=== PATIENT | female | born 1955 | race Hispanic/Latino ===

== ENCOUNTER 2016-09-09 10:17 | Observation (INO) | payer SELFPAY ==
[2016-09-09] VITALS (11 sets, daily range): BP systolic 90–126; BP diastolic 39–71; PULSE 70–119; RESP 13–22; O2SAT 91–96
[~2016-09-09 10:17] MED LIST: CLOT30SO TOPICAL; CRES20T PO; DIGO125T73 PO; DIGO250T72 PO; DILT240C85 PO; DILT60TA PO; DOCU240C41 PO; FURO40TA4 PO; GLIP5TAB21 PO; LISI2.5T PO; LISI40TA PO; LORA10CA PO; METF1000 PO; METO25TA6 PO; OMEP20CA11 PO; OMEP20TA86 PO; POTA10TA19 PO; WARF2.5T82 PO; WARF5TAB7 PO
--- NOTE | 2016-09-09 10:52 | ED.REPORT ---
HPI-Chest Pain 40 and Over Date of Service Sep 09, 2016 ED Provider: Mir Valdovinos MD Pt is a Greenlandic speaking 61 y/o female anticoagulated on Warfarin w/ a hx of CAD , DM, HTN, hyperlipidemia, paroxysmal a-fib, presenting to the ED c/o substernal intermittent pleuritic CP onset this morning. Her pain occurs mostly , almost only while/after coughing. She c/o associated palpitations, cough, nausea, headache, intermittent diarrhea, chills at night. Similar symptoms have occurred previously only when she has a cold. Her CP lasts approximately 3 minutes and returns about every 10 minutes. She denies fever, increased edema. Seasonal Influenza vaccination is up to date. There have been no recent antibiotics or changes in her medications. She used her inhaler this morning because the cough would not go away. The granddaughter reports that she has been having intermittent CP which quickly resolves spontaneously for months. Nursing Notes Stated Complaint: SOB/COUGHING/WEAK Chief Complaint: Respiratory Distress Nursing Notes Reviewed: Yes (Visibiz, Invisible not reconciled) Allergies: Coded Allergies: No Known Allergies (Verified , 04/18/16) Scheduled Acarbose (Acarbose) 100 Mg Tablet 50 MG PO TIDWM Amitriptyline (Amitriptyline) 10 Mg Tablet 10 MG PO HS Aspirin (Aspirin) 81 Mg Tablet 81 MG PO DAILY Cholecalciferol (Vitamin D3) (Vitamin D) 1,000 Unit Capsule 1,000 UNIT PO DAILY Digoxin (Digoxin) 250 Mcg Tablet 125 MCG PO DAILY Diltiazem (Diltiazem) 60 Mg Tablet 60 MG PO BID Diltiazem ER (Cardizem CD) 240 Mg Cap.er.24h 240 MG PO DAILY Furosemide (Furosemide) 40 Mg Tablet 40 MG PO DAILY Glipizide ER (Glipizide ER) 10 Mg Tab.er.24 10 MG PO DAILY Lisinopril (Lisinopril) 40 Mg Tablet 40 MG PO BID Metformin (Glucophage) 1,000 Mg Tablet 1,000 MG PO BID Omeprazole (Omeprazole) 20 Mg Tablet.dr 20 MG PO DAILY Potassium Citrate ER (Potassium Citrate ER) 10 Meq Tablet 10 MEQ PO DAILY TAKE WITH FOOD Rosuvastatin Calcium (Crestor) 20 Mg Tablet 10 MG PO DAILY Warfarin Sodium (Warfarin Sodium) 2.5 Mg Tablet 2.5 MG PO SuTuThSa Warfarin Sodium (Warfarin Sodium) 5 Mg Tablet 5 MG PO MWF Scheduled PRN Albuterol HFA (Proair HFA) 8.5 Gm Hfa.aer.ad 2 PUFFS INHALATION Q4H PRN PRN For Shortness of Breath Cyclobenzaprine (Cyclobenzaprine) 5 Mg Tablet 5-10 MG PO TID PRN PRN Spasm Docusate Sodium (Docusate Sodium) 250 Mg Capsule 250 MG PO BID PRN PRN For Constipation Loratadine (Claritin) 10 Mg Capsule 10 MG PO DAILY PRN PRN allergies Polyethylene Glycol 3350 (Polyethylene Glycol 3350) 17 Gm Powd.pack 17 GM PO DAILY PRN PRN For Constipation General Time Seen by MD: 10:33 Chief Complaint Chest pain (pleuritic) Hx Obtained From: Patient, Desktop Support Consultant (Greenlandic speaking RN used, official labor standards director not available at necessary time) Arrived By: Walk-in Sudden in Onset?: No Onset Occurred: 1 day ago Symptom Duration: Intermittent Location: : Substernal Quality: Pleuritic Radiation: : Does not radiate Migration/Movement: Reports: None Severity: Current: Mild Severity: Maximum: Moderate Similar Sx Previous: Yes Past Medical History Past Medical History Notes: June 2006 showed high right pulmonary pressures Past Medical History O2 requiring central hypoventilation syndrome with subsequent cor pulmonale and episodic paroxysmal atrial fibrillation (warfarin use indicated in EMR 2006, current medications not reconciled) Diabetes Hyperlipidemia Hypertension GERD Depression History of nephrotic syndrome History of PPD positive in 1993 Reports: Coronary artery disease Past Surgical History Cholecystectomy Family History Noncontributory Smoking History Former Smoker Social History Other Social History: Good social support, , Local resident Ambulatory Status Independent Review of Systems Constitutional: Reports: Chills, Denies: Fever Respiratory: Reports: Non-productive cough, Pleuritic pain, Denies: Shortness of breath Cardiovascular: Reports: Chest pain, Palpitations GI: Reports: Diarrhea, Nausea, Denies: Abdominal pain Neurologic: Reports: Headache Complete sys rev & neg: except as marked. Physical Exam Initial Vital Signs Vital Signs (First) Date Time Temp Pulse Resp B/P Pulse Ox O2 Delivery O2 Flow Rate FiO2 09/09/16 10:21 36.9 117/71 09/09/16 11:14 110 22 94 Room Air 09/09/16 14:36 2 Initial VS: Reviewed, Vital signs normal, Vital signs abnormal (she vitals listed in Visibiz are normal, the patient had periods of sat around 9091%, had periods of hypotension with a lowest blood pressure of 86 systolic while in the department, and tachycardic with A. fib up to 1:30, but mostly adequately rate controlled) Head / Eyes: Atraumatic, Normocephalic, PERRL ENT: Mucous membranes moist, Conjunctiva normal, No scleral icterus Neck: Supple, Full range of motion Extremities: Vascular intact, Neuro intact, No swelling, No tenderness Skin: Warm, Dry, No cyanosis Neurologic: Alert, Oriented, Nonfocal Psychiatric: Mood/affect normal, Behavior normal, Normal thought content General/Constitutional: Awake, Alert, No acute distress, Cooperative, Not toxic appearing Appearance / Presentation: Positive: Uncomfortable Respiratory / Chest: Atraumatic, Breath sounds NL, Breath sounds = bilat, No respiratory distress, No rales, No rhonchi, No wheezing, No retractions, No stridor, No chest tenderness, No chest wall deformity, No crepitus She has an uncomfortable appearing persistent cough RN states that there is wheezing and rhonchi on the left side but I do not appreciate this O2 saturation 91% Not dyspneic Cardiovascular: Heart sounds NL, No gallop, No murmurs, No rubs, Cap refill not delayed, Peripheral circulation NL Heart Rate / Rhythm: Positive: Irreg irregular rhythm, Tachycardia Abdomen: Atraumatic, Soft, Non-tender, No guarding, No rebound Interpretation & Diagnostics Lab Results Interpretation Result Diagram: 09/09/16 1100 09/09/16 1100 Test 09/09/16 11:00 09/09/16 13:57 White Blood Count 9.9th/mm3 (3.8-10.1) Red Blood Count 3.67mil/mm3 (3.90-5.20) Hemoglobin 10.2g/dL (12.0-15.6) Hematocrit 33.3% (35.0-46.0) Mean Corpuscular Volume 90.7fL (81-100) Mean Corpuscular Hemoglobin 27.8pg (27.0-35.0) Mean Corpuscular Hemoglobin Concent 30.6% (32.0-37.0) Red Cell Distribution Width 14.2% (12.3-15.4) Platelet Count 266bil/L (150-400) Neutrophils (%) (Auto) 77.1% (40-74) Lymphocytes (%) (Auto) 14.2% (14-46) Monocytes (%) (Auto) 7.9% (4-12) Eosinophils (%) (Auto) 0.4% (0-5) Basophils (%) (Auto) 0.1% (0-3) Prothrombin Time 29.5sec (8.1-12.5) Prothromb Time International Ratio 2.70ratio Sodium Level 140mEq/L (134-144) Potassium Level 3.6mEq/L (3.5-5.2) Chloride Level 100mEq/L (97-108) Carbon Dioxide Level 21mmol/L (18-29) Blood Urea Nitrogen 22mg/dL (8-27) Creatinine 0.91mg/dL (0.57-1.00) Estimat Glomerular Filtration Rate 90mL/min (>59) Glucose Level 220mg/dL (60-99) Calcium Level 9.2mg/dL (8.5-10.1) Magnesium Level 1.6mg/dL (1.6-2.6) Total Bilirubin 0.4mg/dL (0.0-1.2) Aspartate Amino Transf (AST/SGOT) 20U/L (0-50) Alanine Aminotransferase (ALT/SGPT) 10U/L (0-32) Alkaline Phosphatase 86U/L (25-165) Troponin T < 0.010ug/L (0.0-0.011) Total Protein 7.3g/dL (6.4-8.4) Albumin 3.6g/dL (3.4-5.0) Digoxin Level 0.8nG/mL (0.9-2.0) Lactic Acid Level 2.1mmol/L (0.4-2.0) Lab Results Interpretation: CBC normal CMP mild hyperglycemia Influenza negative INR therapeutic Blood Cultures 2 pending Lactic acid marginally elevated Hospitalist has requested sputum culture, and respiratory viral panel, these have been ordered ECG Interpretation ECG Interpretation: A-fib with RvR DIffuse ST segment depression 1-2 mm possibly related to Digoxin Borderline RBBB Time: 10:57 Interpreted by: ED physician Normal ECG Interpretation: No acute ischemic changes, No change from prior ECGs (Mar 2016) X-Ray Chest Interpretation Chest Xray Interpretation: IMPRESSION: No acute pulmonary process. Dictated by: Macy Mireles M.D. on 09/09/2016 at 11:22 Approved by: Macy Mireles M.D. on 09/09/2016 at 11:22 View: Portable, 1 view Interpretation / Wet Read by: Interpret - Radiologist Re-Eval/Medical Decision Med Decision/Clinical Course This is a 61-year-old Green[place]ic-speaking female presents with a chief complaint of a terrible cough. She reports pain with the cough, reports the cough is persistent, and just feels lousy. She denies jason fever, denies essentially shortness breath, she does have some intermittent palpitations. She is on warfarin due to history of atrial fibrillation paroxysmal. Denies smoking history. On exam she does have an uncomfortable appearing cough, but does not appear toxic. However at intervals the patient would have relative hypotension with the blood pressure had dropped as low as 86 at one point, and she was persistently low grade A. fib tachycardia, nonsustained requiring rate control, but generally hanging out around 110. Occasionally her O2 sats would drop down to 90. Workup was pursued, influenza swab was negative. Chest x-ray was negative. Blood work revealed no leukocytosis, and was generally normal. However each time I checked the patient, she was having moderately low blood pressures in the mid 90s, and received several small fluid boluses. On another recheck her systolic blood pressures as low as 86, after 4 x 500 mL boluses. The patient had chronic atrial fibrillation, and had rates generally in the low 100s, she did not have sustained rates above 120 to require rate control. Overall, the patient's chest x-ray and blood work and flu swab are reassuring, however with the patient having recurrent episodes of mild hypotension, a marginally elevated lactic acid, persistent nonspecific tachycardia, and borderline hypoxia sats right on the edge of 90- 91%, the patient is appropriate for admission. Despite the negative chest x-ray, the clinical presentation remains concerning for the possibility of occult pneumonia and sepsis, the patient is being started on ceftriaxone and Zithromax. The patient is improved and is now normotensive at time of admission. The case is discussed with the hospitalist's requested a sputum culture and respiratory virus PCR panel, which are being added. Source of Hx: Old records Time of Eval: 13:38 Patient Status: Condition unchanged Re-Evaluation/Progress Note: Pt rechecked. Informed pt of need for admission due to unstable and worsening vital signs and unclear cause of current illness. Pt understands and agrees with plan for admission. All questions addressed. Consultation : Referral / Consult Name: Katie Alicea MD Consulted With: Hospitalist Call Returned at: 15:06 Director Of Labor And Delivery: Will see patient, Agrees with eval, Agrees with plan, Accepts admit Note: Requested respiratory viral panel and a sputum culture Differential Diagnosis: Positive: Dysrhythmia (chronic atrial fibrillation), Pneumonia, Negative: Acute coronary syndrome, Acute myocardial infarct, Chest pain, acute, Congestive heart failure, Esophageal rupture, Myocarditis, Pericarditis, Pleurisy, Pneumothorax, Pulmonary edema, Pulmonary embolism (I do not appreciate any signs of PE, patient's therapeutic on INR) Counseled Regarding: Diagnosis, Lab results, Need for admission Discharge & Departure Primary Impression: Pneumonia Pneumonia type: due to unspecified organism Laterality: unspecified laterality Lung location: unspecified part of lung Qualified Code: B99.9 - Unspecified infectious disease Additional Impressions: Cough Chronic atrial fibrillation Anticoagulated on Coumadin Hypotension Hypotension type: unspecified hypotension type Qualified Code: I95.9 - Hypotension, unspecified Hypoxia Disposition: ADMITTED TO HOSPITAL Discharge Condition All VS Reviewed: Yes Condition: Stable Referrals: Ha Fisher MD (PCP) Joel Attestation Portions of this note were transcribed by Ubaldo Vega. I, Dr. Valdovinos personally performed the history, physical exam and medical decision-making; I reviewed and confirmed the accuracy of the information in the transcribed note. Signed by Joel Lord, 09/09/16 - 1200 copies to: Ha Fisher MD, Matthew F MD Sep 09, 2016 10:52 UBALDO VEGA Sep 09, 2016 11:00
[2016-09-09] MEDS ORDERED: Albuterol-Ipratropium 3 mL Inhalation Solution NEB ONE (10:55)
[2016-09-09] MEDS ORDERED: HYDROcodone-APAP 5-325 mg Tablet PO ONE (10:55)
[2016-09-09 11:11] LABS: BASOPHILS % (AUTO) 0.1 % (0-3); EOSINOPHILS % (AUTO) 0.4 % (0-5); MONOCYTES % (AUTO) 7.9 % (4-12); Mean Corpuscular Hemoglobin 27.8 pg (27.0-35.0); Mean Corpuscular Volume 90.7 fL (81-100); NEUTROPHILS % (AUTO) 77.1 % (40-74); Platelet Count 266 bil/L (150-400)
--- NOTE | 2016-09-09 11:24 | DRSVH ---
PROCEDURE: X-RAY CHEST ONE VIEW, PORTABLE ([id number]) INDICATIONS: CHEST PAIN TECHNIQUE: One view of the chest was acquired. COMPARISON: [facility], CR, XR CHEST 1VW (PORTABLE), 04/18/2016, 12:27. FINDINGS: Surgical changes and devices: None. Lungs and pleura: No pleural effusions or pneumothorax. Lungs are clear. Mediastinum: Mediastinal contours appear normal. Heart size is normal. Bones and chest wall: No suspicious bony lesions. Overlying soft tissues appear unremarkable. IMPRESSION: No acute pulmonary process. Dictated by: Macy Mireles M.D. on 09/09/2016 at 11:22 Approved by: Macy Mireles M.D. on 09/09/2016 at 11:22
[2016-09-09 11:34] LABS: INR 2.7 ratio
[2016-09-09] MEDS ORDERED: 0.9% Sodium Chloride 500 ML IV ONE ×4 (11:55→13:50)
[2016-09-09 12:13] LABS: Magnesium 1.6 mg/dL (1.6-2.6)
[2016-09-09 12:14] LABS: TROPONIN T < 0.010 ug/L (0.0-0.011)
[2016-09-09] MEDS ORDERED: Azithromycin Inj 500 MG in Dextrose 5% w/Vial Mate 250 ML IV ONE (13:25)
[2016-09-09] MEDS ORDERED: cefTRIAXone Inj 2,000 MG in IV Premix 1 EACH IV ONE (13:25)
[2016-09-09] MEDS ORDERED: ASPI-973 PO (14:49)
[2016-09-09] MEDS ORDERED: ACAR100T2 PO (14:53)
[2016-09-09] MEDS ORDERED: AMIT10TA6 PO (14:53)
[2016-09-09] MEDS ORDERED: CHOL100045 PO (14:53)
[2016-09-09] MEDS ORDERED: DOCU250C2 PO (14:56)
[2016-09-09] MEDS ORDERED: ALBU8.5H2 INHALATION (14:56)
[2016-09-09] MEDS ORDERED: CYCL5TAB PO (14:56)
[2016-09-09] MEDS ORDERED: POLY17PO2 PO (14:56)
[2016-09-09] MEDS ORDERED: Alum-Mag Hydrox-Simeth 30 mL Suspension PO PRN (15:25)
[2016-09-09] MEDS ORDERED: Ondansetron 2 mg/mL 2 mL Inj IVPUSH PRN (15:25)
[2016-09-09] MEDS ORDERED: cefTRIAXone Inj 2,000 MG in Dextrose 5% Minibag Plus 50 ML IV SCH (15:35)
[2016-09-09 16:03] LABS: APPEARANCE,URINE CLEAR (CLEAR,HAZY); COLOR,URINE YELLOW (YELLOW)
[2016-09-09 16:04] LABS: OCCULT BLOOD,URINE SMALL (NEGATIVE); UROBILINOGEN,URINE NORMAL (NORMAL)
--- NOTE | 2016-09-09 16:04 | PCM.HPMED ---
Subjective Date of Service Sep 09, 2016 Primary Provider: Admitting Physician: Katie Alicea MD Primary Care Physician: Ha Fisher MD Attending Physician: Katie Alicea MD Chief Complaint: chest pain HISTORY was OBTAINED FROM PATIENT / MEDITECH NOTES History of present illness 61-year-old female with, DM/A. fib-INR 2.7, productive while phelgm cough and weakness for several days, associated nausea/diarrhea, associated pleuritic chest pain this morning w/ cough and chronic intermittent substernal CP 3 min duration, q10min x months per granddaughter to ER doc. while/after coughing. associated palpitations, nausea, headache, intermittent diarrhea, chillseasonal Influenza vaccination is up to date. no recent antibiotics. tried inhaler this morning due to cough. no sick contacts feels better after ER treatments. does not know if she has asthma. In the ER 91% room air, no wheeze, negative chest x-ray systolic blood pressure noted to be in the 80s, improved to the 1 teens, lactic acid 2.1, influenza/ urine strep antigen negative, started on Rocephin and azithromycin, breathing better with DuoNeb, later In the ER 99/52, heart rate 119, 91% on 2 L nasal cannula Review of Systems - none of the following - / wt change/ acid reflux / / bleeding/bruising / leg swelling - compliant w/ lasix / change in voiding / yeast infections / rash Medications Acarbose (Acarbose) 100 Mg Tablet 50 MG PO TIDWM Amitriptyline (Amitriptyline) 10 Mg Tablet 10 MG PO HS Aspirin (Aspirin) 81 Mg Tablet 81 MG PO DAILY Cholecalciferol (Vitamin D3) (Vitamin D) 1,000 Unit Capsule 1,000 UNIT PO DAILY Digoxin (Digoxin) 250 Mcg Tablet 125 MCG PO DAILY Diltiazem (Diltiazem) 60 Mg Tablet 60 MG PO BID Diltiazem ER (Cardizem CD) 240 Mg Cap.er.24h 240 MG PO DAILY Furosemide (Furosemide) 40 Mg Tablet 40 MG PO DAILY Glipizide ER (Glipizide ER) 10 Mg Tab.er.24 10 MG PO DAILY Lisinopril (Lisinopril) 40 Mg Tablet 40 MG PO BID Metformin (Glucophage) 1,000 Mg Tablet 1,000 MG PO BID Omeprazole (Omeprazole) 20 Mg Tablet.dr 20 MG PO DAILY Potassium Citrate ER (Potassium Citrate ER) 10 Meq Tablet 10 MEQ PO DAILY TAKE WITH FOOD Rosuvastatin Calcium (Crestor) 20 Mg Tablet 10 MG PO DAILY Warfarin Sodium (Warfarin Sodium) 2.5 Mg Tablet 2.5 MG PO SuTuThSa Warfarin Sodium (Warfarin Sodium) 5 Mg Tablet 5 MG PO MWF Scheduled PRN Albuterol HFA (Proair HFA) 8.5 Gm Hfa.aer.ad 2 PUFFS INHALATION Q4H PRN PRN For Shortness of Breath Cyclobenzaprine (Cyclobenzaprine) 5 Mg Tablet 5-10 MG PO TID PRN PRN Spasm Docusate Sodium (Docusate Sodium) 250 Mg Capsule 250 MG PO BID PRN PRN For Constipation Loratadine (Claritin) 10 Mg Capsule 10 MG PO DAILY PRN PRN allergies Polyethylene Glycol 3350 (Polyethylene Glycol 3350) 17 Gm Powd.pack 17 GM PO DAILY PRN PRN For Constipation Past Medical History June 2006 showed high right pulmonary pressures O2 requiring central hypoventilation syndrome with subsequent cor pulmonale and paroxysmal atrial fibrillation (warfarin use 2006 ) Diabetes Hyperlipidemia Hypertension GERD Depression History of nephrotic syndrome History of PPD positive in 1993 Coronary artery disease Cholecystectomy question of prior asthma vs copd? Family History CAD / DM Smoking History Former Smoker Allergies Coded Allergies: No Known Allergies (Verified , 04/18/16) [facility] Social History Hx Alcohol Use: No Hx Substance Use: No Hx Tobacco Use: No Smoking Status: Former Smoker Exam Vital Signs Vital Sign - Last Date Time Temp Pulse Resp B/P Pulse Ox O2 Delivery O2 Flow Rate FiO2 09/09/16 14:36 84 13 102/39 91 Nasal Cannula 2 09/09/16 10:21 36.9 Exam Exam on admission 2L NC NAD A and O x 3 mood affect WNL NC/AT no icterus no injected eyes EOMI PERRL /no pharyngeal lesions/ no oral lesions / hearing intact Supple neck rhonchi on right, crackles on left equal chest rise / no accessory muscle use / speaks in full sentences / no rrw RRR S1 S2 / no mrg / 2+ radial pulses Soft nt nd + BS no hepatosplenomegaly No edema no cyanosis no ecchymosis of lower extremities No rash / no jaundice JONES left shift trop x 1 neg lactic acid 2.1 Digoxin 0.[address] depression in precordial lateral leads UA pending Pending sputum culture, respiratory viral PCR blood culture 10/2015 echo Left ventricular wall thickness is moderately increased. The ejection fraction is estimated to be 60-65%. There are no focal wall motion abnormalities. Assessment of diastolic parameters suggests a pseudonormalization pattern, consistent with elevated filling pressures. The right ventricle is normal in size and function. The right ventricular systolic pressure is estimated at 46 mmHg assuming a right atrial pressure of 8 mm Hg. The left atrium is mildly dilated. The right atrium is mildly dilated. There is no significant valvular heart disease. The aortic root is normal size. The aortic arch is normal in size. Lab and Diagnostics Result Diagram: 09/09/16 1100 09/09/16 1100 Assessment & Plan Active issues and reason for admission chest pain serial trop, echo, consider stress study after URI resolution URI / hypoxia --hold lasix --monitor hypotension --duoneb, rocephine azithrom Chronic issues known prior to admission, present on admission central hypoventilation syndrome with subsequent cor pulmonale and paroxysmal atrial fibrillation (warfarin use 2006 ) Diabetes Hyperlipidemia Hypertension GERD Depression History of nephrotic syndrome History of PPD positive in 1993 Coronary artery disease Cholecystectomy question of prior asthma vs copd? ---SSI, resume home medsI Diet DM DVT prophylaxis lovenox Code full Disposition inpatient Assessment and plan were discussed with patient Katie Alicea MD Sep 09, 2016 16:04
[2016-09-09] MEDS: 0.9% Sodium Chloride 1,000 ML IV SCH (16:10)
[2016-09-09] MEDS ORDERED: Albuterol 2.5 mg/3 mL Inhalation Solution NEB PRN (16:10)
[2016-09-09] MEDS ORDERED: Glucose 40% Oral Gel 15 Gm Tube PO PRN (16:10)
[2016-09-09] MEDS: Albuterol 2.5 mg/3 mL Inhalation Solution NEB SCH ×2 (16:30→20:30)
[2016-09-09] MEDS: Insulin LISPRO 300 Unit/3 mL Inj SUBQ SCH ×2 (17:18→20:30)
[2016-09-09 17:44] LABS: INR 3.1 ratio
[2016-09-09] MEDS ORDERED: Potassium Chloride Oral 20 mEq SR Tab(K 3 - 3.7 & Creat < 2) PO ONE (18:35)
[2016-09-09] MEDS ORDERED: Mag Sulf 4 Gm/100 mL IV Premix (Mag < 1.6 & Creat < 2) IV ONE (18:35)
[2016-09-09] MEDS ORDERED: guaiFENesin DM 200-20 mg/10 mL Syrup PO PRN (18:40)
--- NOTE | 2016-09-09 20:17 | PCM.CONPHA ---
Subjective Date of Service: Sep 09, 2016 HISTORY was OBTAINED FROM PATIENT / MEDITECH NOTES History of present illness 61-year-old female with, DM/A. fib-INR 2.7, productive while phelgm cough and weakness for several days, associated nausea/diarrhea, associated pleuritic chest pain this morning w/ cough and chronic intermittent substernal CP 3 min duration, q10min x months per granddaughter to ER doc. while/after coughing. associated palpitations, nausea, headache, intermittent diarrhea, chillseasonal Influenza vaccination is up to date. no recent antibiotics. tried inhaler this morning due to cough. no sick contacts feels better after ER treatments. does not know if she has asthma. In the ER 91% room air, no wheeze, negative chest x-ray systolic blood pressure noted to be in the 80s, improved to the 1 teens, lactic acid 2.1, influenza/ urine strep antigen negative, started on Rocephin and azithromycin, breathing better with DuoNeb, later In the ER 99/52, heart rate 119, 91% on 2 L nasal cannula Review of Systems - none of the following - / wt change/ acid reflux / / bleeding/bruising / leg swelling - compliant w/ lasix / change in voiding / yeast infections / rash Medications Acarbose (Acarbose) 100 Mg Tablet 50 MG PO TIDWM Amitriptyline (Amitriptyline) 10 Mg Tablet 10 MG PO HS Aspirin (Aspirin) 81 Mg Tablet 81 MG PO DAILY Cholecalciferol (Vitamin D3) (Vitamin D) 1,000 Unit Capsule 1,000 UNIT PO DAILY Digoxin (Digoxin) 250 Mcg Tablet 125 MCG PO DAILY Diltiazem (Diltiazem) 60 Mg Tablet 60 MG PO BID Diltiazem ER (Cardizem CD) 240 Mg Cap.er.24h 240 MG PO DAILY Furosemide (Furosemide) 40 Mg Tablet 40 MG PO DAILY Glipizide ER (Glipizide ER) 10 Mg Tab.er.24 10 MG PO DAILY Lisinopril (Lisinopril) 40 Mg Tablet 40 MG PO BID Metformin (Glucophage) 1,000 Mg Tablet 1,000 MG PO BID Omeprazole (Omeprazole) 20 Mg Tablet.dr 20 MG PO DAILY Potassium Citrate ER (Potassium Citrate ER) 10 Meq Tablet 10 MEQ PO DAILY TAKE WITH FOOD Rosuvastatin Calcium (Crestor) 20 Mg Tablet 10 MG PO DAILY Warfarin Sodium (Warfarin Sodium) 2.5 Mg Tablet 2.5 MG PO SuTuThSa Warfarin Sodium (Warfarin Sodium) 5 Mg Tablet 5 MG PO MWF Scheduled PRN Albuterol HFA (Proair HFA) 8.5 Gm Hfa.aer.ad 2 PUFFS INHALATION Q4H PRN PRN For Shortness of Breath Cyclobenzaprine (Cyclobenzaprine) 5 Mg Tablet 5-10 MG PO TID PRN PRN Spasm Docusate Sodium (Docusate Sodium) 250 Mg Capsule 250 MG PO BID PRN PRN For Constipation Loratadine (Claritin) 10 Mg Capsule 10 MG PO DAILY PRN PRN allergies Polyethylene Glycol 3350 (Polyethylene Glycol 3350) 17 Gm Powd.pack 17 GM PO DAILY PRN PRN For Constipation Past Medical History June 2006 showed high right pulmonary pressures O2 requiring central hypoventilation syndrome with subsequent cor pulmonale and paroxysmal atrial fibrillation (warfarin use 2006 ) Diabetes Hyperlipidemia Hypertension GERD Depression History of nephrotic syndrome History of PPD positive in 1993 Coronary artery disease Cholecystectomy question of prior asthma vs copd? Family History CAD / DM Smoking History Former Smoker Exam on admission 2L NC NAD A and O x 3 mood affect WNL NC/AT no icterus no injected eyes EOMI PERRL /no pharyngeal lesions/ no oral lesions / hearing intact Supple neck rhonchi on right, crackles on left equal chest rise / no accessory muscle use / speaks in full sentences / no rrw RRR S1 S2 / no mrg / 2+ radial pulses Soft nt nd + BS no hepatosplenomegaly No edema no cyanosis no ecchymosis of lower extremities No rash / no jaundice JONES left shift trop x 1 neg lactic acid 2.1 Digoxin 0.[address] depression in precordial lateral leads UA pending Pending sputum culture, respiratory viral PCR blood culture 10/2015 echo Left ventricular wall thickness is moderately increased. The ejection fraction is estimated to be 60-65%. There are no focal wall motion abnormalities. Assessment of diastolic parameters suggests a pseudonormalization pattern, consistent with elevated filling pressures. The right ventricle is normal in size and function. The right ventricular systolic pressure is estimated at 46 mmHg assuming a right atrial pressure of 8 mm Hg. The left atrium is mildly dilated. The right atrium is mildly dilated. There is no significant valvular heart disease. The aortic root is normal size. The aortic arch is normal in size. chest pain serial trop, echo, consider stress study after URI resolution URI / hhypoxia --hold lasix --monitor hypotension --duoneb, rocephine azithrom June 2006 showed high right pulmonary pressures O2 requiring central hypoventilation syndrome with subsequent cor pulmonale and paroxysmal atrial fibrillation (warfarin use 2006 ) Diabetes Hyperlipidemia Hypertension GERD Depression History of nephrotic syndrome History of PPD positive in 1993 Coronary artery disease Cholecystectomy question of prior asthma vs copd? ---SS, resume home medsI Reason for Pharmacy Consult: Anticoagulation Management Objective Vital Signs Date Time Temp Pulse Resp B/P Pulse Ox O2 Delivery O2 Flow Rate FiO2 09/09/16 17:02 80 09/09/16 16:21 36.9 78 18 99/65 93 Nasal Cannula 2.00 09/09/16 16:04 36.9 78 18 99/65 93 Nasal Cannula 2.00 09/09/16 14:36 84 13 102/39 91 Nasal Cannula 2 09/09/16 13:59 94 16 90/57 93 Room Air 09/09/16 13:14 99/48 09/09/16 11:20 119 14 99/52 93 Room Air 09/09/16 11:14 110 22 94 Room Air 09/09/16 10:21 36.9 117/71 Test 09/09/16 11:00 09/09/16 15:45 09/09/16 16:58 09/09/16 19:50 White Blood Count 9.9th/mm3 (3.8-10.1) Red Blood Count 3.67mil/mm3 (3.90-5.20) Hemoglobin 10.2g/dL (12.0-15.6) Hematocrit 33.3% (35.0-46.0) Mean Corpuscular Volume 90.7fL (81-100) Mean Corpuscular Hemoglobin 27.8pg (27.0-35.0) Mean Corpuscular Hemoglobin Concent 30.6% (32.0-37.0) Red Cell Distribution Width 14.2% (12.3-15.4) Platelet Count 266bil/L (150-400) Neutrophils (%) (Auto) 77.1% (40-74) Lymphocytes (%) (Auto) 14.2% (14-46) Monocytes (%) (Auto) 7.9% (4-12) Eosinophils (%) (Auto) 0.4% (0-5) Basophils (%) (Auto) 0.1% (0-3) Sodium Level 140mEq/L (134-144) Potassium Level 3.6mEq/L (3.5-5.2) Chloride Level 100mEq/L (97-108) Carbon Dioxide Level 21mmol/L (18-29) Blood Urea Nitrogen 22mg/dL (8-27) Creatinine 0.91mg/dL (0.57-1.00) Estimat Glomerular Filtration Rate 90mL/min (>59) Glucose Level 220mg/dL (60-99) Calcium Level 9.2mg/dL (8.5-10.1) Magnesium Level 1.6mg/dL (1.6-2.6) Total Bilirubin 0.4mg/dL (0.0-1.2) Aspartate Amino Transf (AST/SGOT) 20U/L (0-50) Alanine Aminotransferase (ALT/SGPT) 10U/L (0-32) Alkaline Phosphatase 86U/L (25-165) Total Protein 7.3g/dL (6.4-8.4) Albumin 3.6g/dL (3.4-5.0) Procalcitonin 0.61ng/mL (See Comment) Digoxin Level 0.8nG/mL (0.9-2.0) Urine Color Yellow (YELLOW) Urine Appearance Clear (CLEAR,HAZY) Urine pH 6.0 (5.0-8.0) Urine Specific [place] 1.010 (1.003-1.035) Urine Protein 30mg/dL (NEG,TRACE) Urine Glucose (UA) Negativemg/dL (NEGATIVE) Urine Ketones Negativemg/dL (NEGATIVE) Urine Occult Blood Small (NEGATIVE) Urine Nitrite Negative (NEGATIVE) Urine Bilirubin Negative (NEGATIVE) Urine Urobilinogen Normalmg/dL (NORMAL) Urine Leukocyte Esterase Negative (NEGATIVE) Urine RBC 0-2/hpf (0-2) Urine WBC 0-5/hpf (0-5) Urine Epithelial Cells None/hpf (NONE-MOD) Urine Crystals None seen (NONE SEEN) Urine Bacteria Few/hpf (NONE-FEW) Urine Hyaline Casts None/lpf (NONE) Urine Granular Casts None seen (NONE SEEN) Urine Waxy Casts None seen (NONE SEEN) Urine Red Blood Cell Casts None seen (NONE SEEN) Urine White Blood Cell Casts None seen (NONE SEEN) Urine Mucus None seen (None Seen) Urine Trichomonas None seen (NONE SEEN) Urine Yeast None (NONE SEEN) Urinalysis Comment None Urine Culture Reflexed Not indicated Prothrombin Time 34.0sec (8.1-12.5) Prothromb Time International Ratio 3.10ratio Assessment/Plan Assessment/Plan Warfarin per Rx: Indication: A-Fib INR Goal: 2 - 3; Today: 3.10 Hold warfarin for today Daily INR ordered Daniel Agarwal PharmD Sep 09, 2016 20:16
[2016-09-09 22:38] LABS: Magnesium 2.4 mg/dL (1.6-2.6)
[2016-09-10] MEDS: Albuterol 2.5 mg/3 mL Inhalation Solution NEB SCH ×2 (00:30→04:30)
[2016-09-10] MEDS: 0.9% Sodium Chloride 1,000 ML IV SCH (01:21)
[2016-09-10 03:06] VITALS: BP 125/63; PULSE 74; RESP 18; O2SAT 94
[2016-09-10 04:22] LABS: Mean Corpuscular Hemoglobin 28.1 pg (27.0-35.0); Mean Corpuscular Volume 91.8 fL (81-100)
[2016-09-10 04:34] LABS: INR 3.36 ratio
[2016-09-10 05:29] VITALS: PULSE 74
[2016-09-10 07:40] VITALS: BP 141/75; PULSE 73; RESP 18; O2SAT 95
[2016-09-10 08:00] VITALS: PULSE 72
[2016-09-10] MEDS: Insulin LISPRO 300 Unit/3 mL Inj SUBQ SCH (08:00)
[2016-09-10] MEDS ORDERED: Azithromycin Inj 500 MG in Dextrose 5% w/Vial Mate 250 ML IV SCH (08:30)
[2016-09-10] MEDS ORDERED: cefTRIAXone Inj 2,000 MG in Dextrose 5% Minibag Plus 50 ML IV SCH (08:30)
--- NOTE | 2016-09-10 10:37 | PCM.DIMED ---
Discharge Instructions Date of Service Sep 10, 2016 Dates of Hospitalization Sep 09, 2016 at 15:01 Discharge Diagnosis Discharge Diagnosis 1. COPD exacerbation 2. Muscular chest pain 3. Diabetes mellitus 4. Chronic hypoxic respiratory failure Diet Diabetic Activity Limited until seen by PCP Call your provider Fever or Chills, Shortness of breath Patient Instructions Protime next Wednesday. Sep 14. Follow-up Provider: Ha Fisher MD Follow-up with PCP in: 1 week Andi Mendoza MD Sep 10, 2016 10:37
[2016-09-10] MEDS ORDERED: DOXY100C43 PO (10:38)
--- NOTE | 2016-09-10 13:35 | PCM.DC.MED ---
Discharge Summary Date of Service Sep 10, 2016 Dates of Hospitalization Date of Hospital Admission Sep 09, 2016 at 15:01 Date of Discharge: Sep 10, 2016 Providers: Admitting Physician: Katie Alicea MD Primary Care Physician: Ha Fisher MD Attending Physician: Katie Alicea MD Diagnosis at Time of Discharge Diagnosis at Time of Discharge 1. COPD exacerbation 2. Muscular chest pain 3. Diabetes mellitus 4. Chronic hypoxic respiratory failure 5. paroxysmal atrial fibrillation (warfarin use 2006 ) 6. Hyperlipidemia 7. Hypertension Consultations None Procedures XRay, CTs & MRIs Chest x-ray unremarkable ECG 12 Lead Sinus rhythm with nonspecific repolarization abnormalities. Invasive Procedures None Brief History Patient presented with acute and chronic dyspnea. She does use home oxygen at 2 L all times for chronic hypoxic respiratory failure. She has a distant history of smoking and known history of pulmonary hypertension as well as possible COPD. She also had chest pain which increased with coughing. Hospital Course Hospital course. She was admitted and treated with possible exacerbation of reactive airways of bronchodilators and steroids. The patient is also given empiric antibiotics and had normal chest x-ray. Serial troponins and ECGs were unremarkable. Her pain resolved completely overnight. She was quite specific stating the pain really occurred only with cough. She also had some weakness when she initially came to the hospital. All of these symptoms had improved and she was comfortable on 1 L of oxygen in the morning of discharge. She was completely agreeable to discharge home with a short course of antibiotics and close follow-up pro time. Her Coumadin was held on the day of discharge and the day just after discharge because of elevated ProTime of between 3 and 4. She was instructed to have a pro time done on the Wednesday following discharge, September 12. Exam Vital Signs (Last) Date Time Temp Pulse Resp B/P Pulse Ox O2 Delivery O2 Flow Rate FiO2 09/10/16 08:00 72 09/10/16 07:40 36.6 18 141/75 95 Nasal Cannula 1.00 Exam Alert oriented 3, no distress. Neck supple. Lungs are clear with minimal expiratory wheezing and prolongation phase. Heart is regular without murmur. Abdomen is soft nondistended. Extremities are free of edema good pedal pulses. Test 09/09/16 11:00 09/09/16 15:45 09/09/16 19:50 09/10/16 03:26 Neutrophils (%) (Auto) 77.1% (40-74) Lymphocytes (%) (Auto) 14.2% (14-46) Monocytes (%) (Auto) 7.9% (4-12) Eosinophils (%) (Auto) 0.4% (0-5) Basophils (%) (Auto) 0.1% (0-3) Total Bilirubin 0.4mg/dL (0.0-1.2) Aspartate Amino Transf (AST/SGOT) 20U/L (0-50) Alanine Aminotransferase (ALT/SGPT) 10U/L (0-32) Alkaline Phosphatase 86U/L (25-165) Total Protein 7.3g/dL (6.4-8.4) Albumin 3.6g/dL (3.4-5.0) Digoxin Level 0.8nG/mL (0.9-2.0) Urine Color Yellow (YELLOW) Urine Appearance Clear (CLEAR,HAZY) Urine pH 6.0 (5.0-8.0) Urine Specific [place] 1.010 (1.003-1.035) Urine Protein 30mg/dL (NEG,TRACE) Urine Glucose (UA) Negativemg/dL (NEGATIVE) Urine Ketones Negativemg/dL (NEGATIVE) Urine Occult Blood Small (NEGATIVE) Urine Nitrite Negative (NEGATIVE) Urine Bilirubin Negative (NEGATIVE) Urine Urobilinogen Normalmg/dL (NORMAL) Urine Leukocyte Esterase Negative (NEGATIVE) Urine RBC 0-2/hpf (0-2) Urine WBC 0-5/hpf (0-5) Urine Epithelial Cells None/hpf (NONE-MOD) Urine Crystals None seen (NONE SEEN) Urine Bacteria Few/hpf (NONE-FEW) Urine Hyaline Casts None/lpf (NONE) Urine Granular Casts None seen (NONE SEEN) Urine Waxy Casts None seen (NONE SEEN) Urine Red Blood Cell Casts None seen (NONE SEEN) Urine White Blood Cell Casts None seen (NONE SEEN) Urine Mucus None seen (None Seen) Urine Trichomonas None seen (NONE SEEN) Urine Yeast None (NONE SEEN) Urinalysis Comment None Urine Culture Reflexed Not indicated Lactic Acid Level 1.0mmol/L (0.4-2.0) Magnesium Level 2.4mg/dL (1.6-2.6) Troponin T < 0.010ug/L (0.0-0.011) White Blood Count 6.2th/mm3 (3.8-10.1) Red Blood Count 3.66mil/mm3 (3.90-5.20) Hemoglobin 10.3g/dL (12.0-15.6) Hematocrit 33.6% (35.0-46.0) Mean Corpuscular Volume 91.8fL (81-100) Mean Corpuscular Hemoglobin 28.1pg (27.0-35.0) Mean Corpuscular Hemoglobin Concent 30.7% (32.0-37.0) Red Cell Distribution Width 14.4% (12.3-15.4) Platelet Count 230bil/L (150-400) Prothrombin Time 36.8sec (8.1-12.5) Prothromb Time International Ratio 3.36ratio Sodium Level 148mEq/L (134-144) Potassium Level 4.0mEq/L (3.5-5.2) Chloride Level 110mEq/L (97-108) Carbon Dioxide Level 26mmol/L (18-29) Blood Urea Nitrogen 12mg/dL (8-27) Creatinine 0.61mg/dL (0.57-1.00) Estimat Glomerular Filtration Rate 142mL/min (>59) Glucose Level 119mg/dL (60-99) Calcium Level 8.8mg/dL (8.5-10.1) Procalcitonin 0.44ng/mL (See Comment) Microbiology Results Negative respiratory PCR panel, flu panel, and blood cultures 2. Discharge Medications Discharge Medications Acarbose (Acarbose) 100 Mg Tablet 50 MG PO TIDWM (Reported) Amitriptyline (Amitriptyline) 10 Mg Tablet 10 MG PO HS (Reported) Aspirin (Aspirin) 81 Mg Tablet 81 MG PO DAILY (Reported) Cholecalciferol (Vitamin D3) (Vitamin D) 1,000 Unit Capsule 1,000 UNIT PO DAILY (Reported) Digoxin (Digoxin) 250 Mcg Tablet 125 MCG PO DAILY (Reported) Diltiazem (Diltiazem) 60 Mg Tablet 60 MG PO BID (Reported) Diltiazem ER (Cardizem CD) 240 Mg Cap.er.24h 240 MG PO DAILY (Reported) Doxycycline Monohyd (Doxycycline Monohyd) 100 Mg Capsule 100 MG PO BID Prescribed by: PRETTY MENDOZA MD Furosemide (Furosemide) 40 Mg Tablet 40 MG PO DAILY (Reported) Glipizide ER (Glipizide ER) 10 Mg Tab.er.24 10 MG PO DAILY (Reported) Lisinopril (Lisinopril) 40 Mg Tablet 40 MG PO BID (Reported) Metformin (Glucophage) 1,000 Mg Tablet 1,000 MG PO BID (Reported) Omeprazole (Omeprazole) 20 Mg Tablet.dr 20 MG PO DAILY (Reported) Potassium Citrate ER (Potassium Citrate ER) 10 Meq Tablet 10 MEQ PO DAILY ( Reported) TAKE WITH FOOD Rosuvastatin Calcium (Crestor) 20 Mg Tablet 10 MG PO DAILY (Reported) Warfarin Sodium (Warfarin Sodium) 2.5 Mg Tablet 2.5 MG PO SuTuThSa (Reported) Warfarin Sodium (Warfarin Sodium) 5 Mg Tablet 5 MG PO MWF (Reported) As needed Albuterol HFA (Proair HFA) 8.5 Gm Hfa.aer.ad 2 PUFFS INHALATION Q4H PRN PRN For Shortness of Breath (Reported) Cyclobenzaprine (Cyclobenzaprine) 5 Mg Tablet 5-10 MG PO TID PRN PRN Spasm ( Reported) Docusate Sodium (Docusate Sodium) 250 Mg Capsule 250 MG PO BID PRN PRN For Constipation (Reported) Loratadine (Claritin) 10 Mg Capsule 10 MG PO DAILY PRN PRN allergies (Reported) Polyethylene Glycol 3350 (Polyethylene Glycol 3350) 17 Gm Powd.pack 17 GM PO DAILY PRN PRN For Constipation (Reported) Followup Plan Disposition: Home, with family Discharge Diet: Diabetic Discharge Activity: Limited until seen by PCP Patient Instructions Protime next Wednesday. Sep 14. Follow-up Provider: Ha Fisher MD Follow-up with PCP in: 1 week Time spent 30 minutes Pretty Mendoza MD Sep 10, 2016 13:35
== END 2016-09-10 11:41 | disposition home or self-care (01) ==
LOC: SED 10:17 → PCC 15:01
PROVIDERS: ADMIT Urology; ATTEND Urology
DX: J44.1 Chronic obstructive pulmonary disease with (acute) exacerbation (principal); Z87.891 Personal history of nicotine dependence; J96.11 Chronic respiratory failure with hypoxia; Z99.81 Dependence on supplemental oxygen; E11.9 Type 2 diabetes mellitus without complications; Z79.84 Long term (current) use of oral hypoglycemic drugs; I48.0 Paroxysmal atrial fibrillation; Z79.01 Long term (current) use of anticoagulants; I10 Essential (primary) hypertension
CPT/HCPCS: 36415; 71010; 80048; 80053; 80162; 81000; 82308; 82948; 83605; 83735; 84132; 84484; 85025; 85027; 85610; 86403; 87040; 87081; 87633; 87804; 93005; 94664; 96361; 96365; 96367; 99285; G0378; J0456; J0696; J1815; J7030; J7040; J7620